=== PATIENT | female | born 1975 | race Caucasian/White ===

== ENCOUNTER 2016-12-16 21:48 | Emergency (ER) | payer BC, OTHER | END 2016-12-16 23:27 | disposition home or self-care (01) | LOC: ER 21:48 | DX: N39.0 Urinary tract infection, site not specified (principal); R10.13 Epigastric pain; F17.210 Nicotine dependence, cigarettes, uncomplicated; Z98.51 Tubal ligation status | CPT/HCPCS: 36415; 96361; 96374; 96375 ==

== ENCOUNTER 2016-12-18 21:22 | Emergency (ER) | payer BC, OTHER | END 2016-12-19 02:29 | disposition short-term general hospital (02) | LOC: ER 21:22 | DX: K80.20 Calculus of gallbladder without cholecystitis without obstruction (principal); F17.210 Nicotine dependence, cigarettes, uncomplicated; Z98.51 Tubal ligation status | CPT/HCPCS: 36415; 96361; 96374; 96375; 96376; Q9967 ==